=== PATIENT | female | born 1970 | race Caucasian/White ===

== ENCOUNTER 2022-11-30 08:47 | Emergency (ER) | payer OTHER, SELFPAY ==
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
[2022-11-30 09:06] VITALS: BP 133/90; PULSE 99; RESP 18; TEMP 36.4; O2SAT 99
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
== END 2022-11-30 10:10 | disposition home or self-care (01) ==
PROVIDERS: Emergency Provider Nurse Practitioner
DX: S39.012A Strain of muscle, fascia and tendon of lower back, initial encounter (principal); S40.021A Contusion of right upper arm, initial encounter; V43.62XA Car passenger injured in collision with other type car in traffic accident, initial encounter; F41.9 Anxiety disorder, unspecified; F32.A Depression, unspecified
CPT/HCPCS: 73060; 99213; G0463